=== PATIENT | male | born 1945 | race Caucasian/White ===

== ENCOUNTER → 2024-02-02 12:43 | Outpatient (REF) | payer OTHER, SELFPAY | LOC: CLAB 12:43 | PROVIDERS: ATTENDING PHYSICIAN Otolaryngology | DX: J35.8 Other chronic diseases of tonsils and adenoids (principal) | CPT/HCPCS: 88305; 88342 ==

== ENCOUNTER → 2024-03-01 11:23 | Outpatient (REF) | payer OTHER, SELFPAY | LOC: RCS 11:23 | PROVIDERS: ATTENDING PHYSICIAN Specialist; FAMILY PHYSICIAN Family Medicine | DX: Z01.818 Encounter for other preprocedural examination (principal) | CPT/HCPCS: 93005 ==

== ENCOUNTER → 2024-04-17 08:19 | Outpatient (REF) | payer OTHER, SELFPAY ==
[2024-04-17 08:50] VITALS: BP 141/55; BP_SYST 51
== END ==
LOC: RADI 08:19
PROVIDERS: ATTENDING PHYSICIAN Internal Medicine Hematology & Oncology; FAMILY PHYSICIAN Family Medicine
DX: C76.0 Malignant neoplasm of head, face and neck (principal); Z53.8 Procedure and treatment not carried out for other reasons; I44.1 Atrioventricular block, second degree; I49.8 Other specified cardiac arrhythmias
CPT/HCPCS: 93005

== ENCOUNTER 2024-04-17 09:13 | Emergency (ER) | payer OTHER, SELFPAY ==
[2024-04-17 09:17] VITALS: BP 132/63
[2024-04-17 09:25] VITALS: BP 145/66
[2024-04-17 09:30] VITALS: BMI 29.3
--- NOTE | 2024-04-17 09:52 | ED.GENMED ---
History of Present Illness
General
Chief Complaint: Cardiac Symptoms
Source: patient and physician
Time Seen by Provider: 04/17/24 09:36
History of Present Illness
History of Present Illness:
78-year-old male with past medical history of hypertension, hyperlipidemia, previous DC, previous CVA, diabetes, sent to the emergency department from interventional radiology after he was supposed to be getting a port placement for initiation of
treatment for oropharyngeal cancer where he was getting an EKG performed and was found to be in a suspected heart block. Patient is asymptomatic, denies chest pain, shortness of, palpitations, sensation of syncope or near syncope, lightheadedness,
dizziness, weakness or any other concerns. States that he feels as if he is in his usual state of health. He notes that he does not follow with a medical physiologist. His DC occurred in 2008 but he states he does not have any cardiac stents. He reports
good compliance with a daily 81 mg aspirin.
Past History
Past History
ED Past Medical History: Cancer, CVA, HTN, Hypercholesterolemia, NIDDM and DC
ED Past Surgical History: Orthopedic and Other
Social History
Tobacco: Former smoker
Alcohol: None
Drug: None
Personal: Single
Living: with family
Review of Systems
Review of Systems
All Other Systems: ROS reviewed and negative except as documented in HPI and ROS
Phy Exam
Physical Exam
Physical Exam:
GENERAL: Alert , in no apparent distress
EYE: conjunctiva clear
NECK: Supple.
ENT: o/p clr, mmm.
CARDIAC: R bradycardic rate and rhythm, frequent pauses and dropped QRS complexes on people manager
LUNGS: Clear breath sounds bilaterally, no acute respiratory distress, no wheezes/rales/rhonchi
NEUROLOGICAL: Alert and oriented
SKIN: Warm and dry, skin intact.
MUSCULOSKELETAL: well perfused.
PSYCH: Normal and appropriate interaction.
Scores
Heart Failure Risk
Heart Failure Risk Score: Not Applicable
Heart Score for Chest Pain Patients
STEMI patient?: Not applicable
Withdrawal Assessment of Alcohol
Withdrawal Assessment Completed?: Not applicable
Course
Orders/Labs/Results
Orders:
Orders
04/17/24 09:52
Basic Metabolic Panel Urgent
Complete Blood Count/With Diff Urgent
Magnesium Urgent
TSH Urgent
Abnormal Lab Results
04/17/24
09:52
MCH 31.5 H pg
(27.0-31.0)
Plt Count 116 L 10^3/uL
(130-400)
MPV 11.8 H fL
(7.4-10.4)
Monocytes % 9.4 H %
(1.7-9.3)
BUN 23 H mg/dl
(9-20)
04/17/24 09:52
04/17/24 09:52
Vital Signs
Initial and Last Documented VS:
Initial Vital Signs
Temp Pulse BP Pulse Ox
98.4 F 52 132/63 96
04/17/24 09:17 04/17/24 09:17 04/17/24 09:17 04/17/24 09:17
Last Documented Vital Signs
Temp Pulse Resp BP Pulse Ox
98.4 F 58 18 158/98 96
04/17/24 09:17 04/17/24 12:00 04/17/24 12:01 04/17/24 12:01 04/17/24 11:45
Geometry Professor consulted with Physician
Geometry Professor consulted with physician?: Yes
Name of Physician Consulted: Landon
MDM/Problems Addressed
Differential Diagnosis Includes:
High-grade heart block, electrolyte disturbance, no symptoms to suggest ACS
MDM/Problems Addressed:
78-year-old male presenting to the emergency department for evaluation from interventional radiology after he was incidentally found to have a suspected high degree heart block on EKG. Patient is asymptomatic presently and does not report any other
symptoms over the last few days/weeks. Unclear as to if this is a new diagnosis as patient has not followed with a medical physiologist in many years. Patient was placed on pacer pads and kept on people manager. Labs sent. I notified medical physiologist
on-call, Dr. Dwyer, who will come to the emergency department to evaluate patient.
Chronic conditions affecting care: CAD and Cancer
*Pulse Oximetry
Patient hypoxic: no
*EKG
Interpreted by ED Provider?: Yes
Heart Rate: 48
Rate: bradycardiac
Rhythm: sinus
Dickinson: normal axis
Interval: second degree mobitz II
Ischemia: no ischemia
*Tie Worker Interpretation
Rate: bradycardiac
Rhythm: sinus
*Critical Care Note
Total Time (30-74mins, 75-104mins- exclusive of procedures): Not Applicable
Patient Management
Discussion with other providers: Disposition Clerk
Escalation/DeEscalation of care consider admission/obs:
Patient seen by cardiology. They suspect patients heart block is a 2nd degree degree mobitz 1 and not a type 2 as we were originally concerned with. Cardiology is recommending cessation of beta-gilberto and they will arrange for a holter monitor and
outpatient follow up. Patient was counselled on return precautions to the ER and he is happy and in agreement with this treatment plan.
ED Attending Note
-
Portions of this chart may have been created with voice recognition software.� Occasional wrong word or��sound alike� substitutions may have occurred due to the inherent limitations of voice recognition software.
Discharge Plan
Departure
Patient Disposition: Home (Routine Discharge)
Date of Disposition: 04/17/24
Time of Disposition: 11:59
Patient with high blood pressure during this ER visit?: No
Discharge Problem:
Mobitz type I Wenckebach atrioventricular block
Instructions: Heart Block, Adult (DC)
Prescriptions:
No Action
gabapentin 300 mg Capsule
1,200 mg PO TID
benazepril 40 mg Tablet
40 mg PO DAILY
aspirin 81 mg Tablet,Delayed Release (Dr/Ec)
81 mg PO .ON HOLD
Patient Comments:
04/17/2024, on hold per pt. for his upcoming procedure that he has scheduled for tomorrow. Was taking 1 tab daily before placed on hold.
acetaminophen [Tylenol Extra Strength] 500 mg Tablet
1,500 mg PO BIDPRN PRN (Reason: mild pain)
potassium 99 mg Tablet
198 mg PO HS
omeprazole 20 mg capsule,delayed release(DR/EC)
20 mg PO DAILY
rosuvastatin 5 mg tablet
5 mg PO HS
Patient Comments:
04/17/2024, pt. gets this med. through [employer]. Per pt., he gets 3 month supplies of this med. every 6 weeks.
insulin glargine [Lantus Solostar U-100 Insulin] 100 unit/mL (3 mL) Insulin Pen
7 unit SC HS
insulin aspart U-100 [Novolog U-100 Insulin aspart] 100 unit/mL Solution
16 unit SC TID
Referrals:
Veronica Dwyer MD [Active] -
Pepito Manrique MD [Family Provider] -
Activity Restrictions/Additional Instructions:
Please stop taking your metoprolol as recommended by the medical physiologist. Return to the ER with any worsening symptoms or concerns
Interventions
Interventions:
*Risk Screen - Suicide Last Done: 04/17/24 09:40
*General Assessment Last Done: 04/17/24 09:40
*Neglect/Abuse Screening Last Done: 04/17/24 09:40
*ED COVID-19 Vaccine History Last Done: 04/17/24 09:21
*Nursing Disposition Last Done: 04/17/24 12:23
ED- Pulmonary Assessment Last Done: 04/17/24 09:31
ED- Cardiac Assessment Last Done: 04/17/24 09:31
Discharge Date and Time
Discharge Date/Time: 04/17/24 12:24
Print Language: TAJIK
[2024-04-17 10:00] LABS: % Basophils 1.2 % (0-2); % Immature Granulocytes 0.2 % (0-0.5); % Lymphocytes 38.1 % (20.5-51.1); % Monocytes 9.4 % (1.7-9.3); % Neutrophils 45.1 % (42.2-75.2); Absolute Basophils 0.1 10^3/uL (0-0.2); Absolute Eosinophils 0.4 10^3/uL (0-0.7); Absolute Lymphocytes 2.2 10^3/uL (1.2-3.4); Absolute Monocytes 0.6 10^3/uL (0.1-0.6); Absolute Neutrophils 2.7 10^3/uL (1.4-6.5); Hematocrit 44.6 % (39.0-52.0); Hemoglobin 15.1 g/dL (13.0-18.0); Mean Corp Hgb Conc. 33.9 g/dL (33.0-37.0); Mean Corpuscular Hgb 31.5 pg (27.0-31.0); Mean Corpuscular Volume 92.9 fL (80.0-94.0); Mean Platelet Volume 11.8 fL (7.4-10.4); Nucleated Red Blood Cells % 0 % (-); Platelet Count 116 10^3/uL (130-400); Red Cell Dist. Width 13.5 % (11.5-14.5); White Blood Cell Count 5.9 10^3/uL (4.8-10.8)
[2024-04-17 10:11] LABS: Blood Urea Nitrogen 23 mg/dl (9-20); Calcium 9.9 mg/dl (8.4-10.2); Carbon Dioxide 29 mmol/L (22-30); Chloride 101 mmol/L (98-107); Estimated Creatinine Clearance 82 ml/min; Glucose 88 mg/dl (70-99); Sodium 138 mmol/L (135-145); eGFR > 60.00
[2024-04-17 10:20] VITALS: BP 129/81
[2024-04-17 10:47] LABS: TSH 1.89 uIU/ml (0.47-4.68)
--- NOTE | 2024-04-17 10:51 | CON.CAR ---
Addendum entered and electronically signed by Veronica Dwyer MD 04/17/24 12:26:
I saw and examined the patient.
The CONTINUOUS MINING MACHINE LODE MINER's note was reviewed and I agree with the note.
Comment: 78 yo male with HTN, HLD, IDDM (managed by Dr. Yeung), history of PR in 1978 (medical management), PAD (s/p left carotid stent), spinal stenosis and oropharyngeal cancer (right tonsil, managed by Dr. Velasquez), who presents to the ER from IR
after an EKG showed sinus bradycardia 48 bpm with marked sinus arrhythmia with first degree AVB with second degree AVB Mobitz I. He was in IR for a port placement for initiation of chemotherapy for oropharyngeal cancer. He is feeling well without
complaint. rrr, no m/r/g, lungs cta, a&O x3. ECG with sb and wenckebach. Will stop his bb. He will monitor bp at home, may need a nonav tamra blocking agent. Will arrange holter and f/u. No CI for port placement.
Original Note:
Consultation
Consultation Request
Date/Time Consultation Requested: 04/17/24 10a
Date/Time Consultation Performed: 04/17/24 10:30a
Requesting Provider: Jeremias Duong PA-C
Performing Provider: DEON Shultz for Dr. Dwyer
Reason for Consultation: second degree AVB Mobitz I
Medical History
-
Chief Complaint: second degree AVB on EKG
History of Present Illness:
Mr. George is a 78 yo male with HTN, HLD, IDDM (managed by Dr. Yeung), history of PR in 1978 (medical management), PAD (s/p left carotid stent), spinal stenosis and oropharyngeal cancer (right tonsil, managed by Dr. Velasquez), who presents to the
ER from IR after an EKG showed sinus bradycardia 48 bpm with marked sinus arrhythmia with first degree AVB with second degree AVB Mobitz I. He was in IR for a port placement for initiation of chemotherapy for oropharyngeal cancer. He denies any
cardiac symptoms and feels 'great, normal'. He is on Lopressor 50mg BID and took his meds this morning. We are consulted for second degree AVB Pj Moreno.
Past Medical History
Past Medical History: Other (as above)
Past Surgical History: Orthopedic (back surgery for spinal stenosis) and Other (left carotid artery stent)
Social History
Tobacco: Former Smoker (quit in 1978)
Alcohol: Daily (2 beers with dinner)
Drug: None
Personal:
Living: With Family (sister)
Employment: Retired
Family History
Family History: Early CAD (father had CABG in early 60s, of PR age 69. mother had PR/CVA age 85)
Allergies / Home Medications
Allergy/AdvReac Type Severity Reaction Status Date / Time
bee venom protein (honey bee) Allergy Unknown Verified 04/17/24 09:22
empagliflozin Allergy Unknown Verified 04/17/24 09:22
�Medication �Instructions �Recorded �Confirmed �Type
benazepril 40 mg tablet 40 mg PO DAILY 02/09/24 04/17/24 History
gabapentin 300 mg capsule 1,200 mg PO TID 02/09/24 04/17/24 History
metoprolol tartrate 50 mg tablet 50 mg PO BID 02/09/24 04/17/24 History
acetaminophen 500 mg tablet 1,500 mg PO BIDPRN PRN mild pain 04/17/24 04/17/24 History
(Tylenol Extra Strength)
aspirin 81 mg tablet,delayed 81 mg PO .ON HOLD 04/17/24 04/17/24 History
release
insulin glargine 100 unit/mL (3 7 unit SC HS 04/17/24 04/17/24 History
mL) subcutaneous pen (Lantus
Solostar U-100 Insulin)
omeprazole 20 mg capsule,delayed 20 mg PO DAILY 04/17/24 04/17/24 History
release
potassium 99 mg tablet 198 mg PO HS 04/17/24 04/17/24 History
rosuvastatin 5 mg tablet 5 mg PO HS 04/17/24 04/17/24 History
Review of Systems
-
History Source: Patient
All other systems: Negative unless noted
Physical Exam
Vital Signs
Temp Pulse Resp BP Pulse Ox
98.4 F 55 12 129/81 96
04/17/24 09:17 04/17/24 10:20 04/17/24 10:20 04/17/24 10:20 04/17/24 10:20
Lab Results
04/17/24 09:52
04/17/24 09:52
Physical Exam
General: Well Developed, Well Nourished and No Apparent Distress
HEENT: Normocephalic, Anicteric and Moist Mucous Membranes
Respiratory: Clear and Non Labored Respirations
Cardiac: S1/S2 and Regular Rhythm (kendy with second degree AVB Mobitz I at times)
Breast: Deferred by me
GI: Soft, Non Tender, Non Distended and Normal Bowel Sounds
Rectal: Deferred by Provider
Genito-urinary: Clear Urine
Musculoskeletal: No Clubbing, No Cyanosis and No Edema
Skin: Warm and Dry
Neuro: AO x 3
Psych: Calm
Impression / Plan
-
Second degree AVB, Mobitz I - new on EKG today.
- intermittent.
- asymptomatic.
- stop Lopressor 50mg BID.
- check 48 hour Holter monitor, follow up cardiology as outpatient.
Sinus bradycardia - asymptomatic.
- as above.
HTN - stable.
- continue home meds, benazepril.
- monitor BP since Lopressor stopped, follow up PCP and cardiology.
HLD - stable on Crestor, continue.
History of PR - 1978, medical therapy.
- does not follow with cardiology.
- ASA, Crestor, Lopressor (hold as above).
PAD - s/p left carotid stent about 5 years ago.
- ASA, Crestor.
IDDM - insulin per Dr. Yeung as an outpatient.
Data Reviewed
-
EKG: Tracing Personally Visualized and interpreted (sinus bradycardia 48 bpm with marked sinus arrhythmia with first degree AVB with second degree AVB Mobitz I)
Labs: Labs Reviewed by me
Old Records: Reviewed
[2024-04-17 11:00] VITALS: BP 105/69
[2024-04-17 12:01] VITALS: BP 158/98
== END 2024-04-17 12:24 | disposition home or self-care (01) ==
LOC: EMR 09:13
PROVIDERS: Physician Assistant Medical; EMERGENCY PHYSICIAN Emergency Medicine; FAMILY PHYSICIAN Family Medicine
DX: I44.1 Atrioventricular block, second degree (principal); I10 Essential (primary) hypertension; E78.00 Pure hypercholesterolemia, unspecified; I25.2 Old myocardial infarction; E11.9 Type 2 diabetes mellitus without complications; C10.9 Malignant neoplasm of oropharynx, unspecified; Z82.3 Family history of stroke; Z82.49 Family history of ischemic heart disease and other diseases of the circulatory system; Z87.891 Personal history of nicotine dependence
CPT/HCPCS: 99283; 80048; 83735; 84443; 85025

== ENCOUNTER → 2024-04-21 08:29 | Outpatient (REF) | payer OTHER, SELFPAY ==
[2024-04-21 08:45] VITALS: BP 135/88; BP_SYST 63
[2024-04-21] MEDS: ANCEF 10 IV (10:10)
[2024-04-21 11:05] VITALS: BP 138/68; BP_SYST 67
[2024-04-21 11:30] VITALS: BP 138/68
== END ==
LOC: RADI 08:29
PROVIDERS: ATTENDING PHYSICIAN Internal Medicine Hematology & Oncology; FAMILY PHYSICIAN Family Medicine
DX: C76.0 Malignant neoplasm of head, face and neck (principal)
CPT/HCPCS: 36561; 76937; 77001; 99152; 99153; C1788

== ENCOUNTER → 2024-04-22 10:21 | Outpatient (REF) | payer OTHER, SELFPAY | LOC: RCS 10:21 | PROVIDERS: ATTENDING PHYSICIAN Internal Medicine Cardiovascular Disease; FAMILY PHYSICIAN Family Medicine | DX: I44.0 Atrioventricular block, first degree (principal) | CPT/HCPCS: 93225; 93226 ==

== ENCOUNTER → 2024-05-31 09:11 | Outpatient (REF) | payer OTHER, SELFPAY ==
[2024-05-31 11:23] LABS: Hematocrit 37.1 % (39.0-52.0); Hemoglobin 13.1 g/dL (13.0-18.0); Mean Corp Hgb Conc. 35.3 g/dL (33.0-37.0); Mean Corpuscular Hgb 32.8 pg (27.0-31.0); Mean Corpuscular Volume 92.8 fL (80.0-94.0); Red Cell Dist. Width 13.2 % (11.5-14.5)
[2024-05-31 11:49] LABS: ALT (SGPT) 26 U/L (0-50); AST (SGOT) 28 U/L (17-59); Albumin 3.9 g/dl (3.5-5.0); Alkaline Phosphatase 55 U/L (38-126); Blood Urea Nitrogen 30 mg/dl (9-20); Calcium 9.3 mg/dl (8.4-10.2); Carbon Dioxide 30 mmol/L (22-30); Chloride 98 mmol/L (98-107); Glucose 128 mg/dl (70-99); Magnesium 1.2 mg/dl (1.6-2.3); Sodium 133 mmol/L (135-145); Total Bilirubin 0.6 mg/dl (0.2-1.3); Total Protein 6.1 g/dl (6.3-8.2); eGFR > 60.00
[2024-05-31 12:01] LABS: Mean Platelet Volume 10.8 fL (7.4-10.4); Platelet Count 60 10^3/uL (130-400)
[2024-05-31 12:04] LABS: % Basophils 0.5 % (0-2); % Eosinophils 0.5 % (0-6); % Lymphocytes 41.4 % (20.5-51.1); % Monocytes 12.3 % (1.7-9.3); % Neutrophils 45.3 % (42.2-75.2); Absolute Lymphocytes 0.8 10^3/uL (1.2-3.4); Absolute Monocytes 0.3 10^3/uL (0.1-0.6); Absolute Neutrophils 0.9 10^3/uL (1.4-6.5); Nucleated Red Blood Cells % 0 % (-)
== END ==
LOC: REG 09:11
PROVIDERS: ATTENDING PHYSICIAN Internal Medicine Hematology & Oncology; FAMILY PHYSICIAN Family Medicine
DX: C76.0 Malignant neoplasm of head, face and neck (principal)
CPT/HCPCS: 36415; 80053; 83735; 85025

== ENCOUNTER → 2024-06-06 15:05 | Outpatient (REF) | payer OTHER, SELFPAY ==
[2024-06-06 17:18] LABS: ALT (SGPT) 19 U/L (0-50); AST (SGOT) 21 U/L (17-59); Albumin 4.1 g/dl (3.5-5.0); Alkaline Phosphatase 63 U/L (38-126); Blood Urea Nitrogen 30 mg/dl (9-20); Calcium 9.8 mg/dl (8.4-10.2); Carbon Dioxide 27 mmol/L (22-30); Chloride 98 mmol/L (98-107); Glucose 135 mg/dl (70-99); Magnesium 1.5 mg/dl (1.6-2.3); Potassium 5.1 mmol/L (3.5-5.1); Sodium 134 mmol/L (135-145); Total Bilirubin 0.4 mg/dl (0.2-1.3); Total Protein 6.5 g/dl (6.3-8.2); eGFR > 60.00
[2024-06-06 17:30] LABS: % Eosinophils 0.5 % (0-6); % Immature Granulocytes 0.5 % (0-0.5); % Lymphocytes 39.3 % (20.5-51.1); % Monocytes 16.4 % (1.7-9.3); % Neutrophils 43.3 % (42.2-75.2); Absolute Lymphocytes 0.7 10^3/uL (1.2-3.4); Absolute Monocytes 0.3 10^3/uL (0.1-0.6); Absolute Neutrophils 0.8 10^3/uL (1.4-6.5); Hematocrit 35.9 % (39.0-52.0); Hemoglobin 12.6 g/dL (13.0-18.0); Mean Corp Hgb Conc. 35.1 g/dL (33.0-37.0); Mean Corpuscular Hgb 32.5 pg (27.0-31.0); Mean Corpuscular Volume 92.5 fL (80.0-94.0); Mean Platelet Volume 10.6 fL (7.4-10.4); Nucleated Red Blood Cells % 0 % (-); Platelet Count 90 10^3/uL (130-400); Red Blood Cell Count 3.88 10^6/uL (4.70-6.10); Red Cell Dist. Width 13.5 % (11.5-14.5); White Blood Cell Count 1.8 10^3/uL (4.8-10.8)
== END ==
LOC: REG 15:05
PROVIDERS: ATTENDING PHYSICIAN Internal Medicine Hematology & Oncology; FAMILY PHYSICIAN Family Medicine
DX: C76.0 Malignant neoplasm of head, face and neck (principal)
CPT/HCPCS: 36415; 80053; 83735; 85025

== ENCOUNTER → 2024-06-13 15:44 | Outpatient (REF) | payer OTHER, SELFPAY ==
[2024-06-13 09:27] LABS: % Basophils 0.1 % (0-2); % Eosinophils 0.1 % (0-6); % Immature Granulocytes 6.5 % (0-0.5); % Lymphocytes 6.8 % (20.5-51.1); % Monocytes 11.2 % (1.7-9.3); % Neutrophils 75.3 % (42.2-75.2); Absolute Immature Granulocytes 1.3 10^3/uL (0-0.05); Absolute Lymphocytes 1.4 10^3/uL (1.2-3.4); Absolute Monocytes 2.2 10^3/uL (0.1-0.6); Absolute Neutrophils 14.9 10^3/uL (1.4-6.5); Hematocrit 36.6 % (39.0-52.0); Hemoglobin 12.5 g/dL (13.0-18.0); Mean Corp Hgb Conc. 34.2 g/dL (33.0-37.0); Mean Corpuscular Hgb 31.9 pg (27.0-31.0); Mean Corpuscular Volume 93.4 fL (80.0-94.0); Mean Platelet Volume 9.7 fL (7.4-10.4); Platelet Count 199 10^3/uL (130-400); Red Blood Cell Count 3.92 10^6/uL (4.70-6.10); Red Cell Dist. Width 14.3 % (11.5-14.5); White Blood Cell Count 19.8 10^3/uL (4.8-10.8)
[2024-06-13 09:53] LABS: ALT (SGPT) 15 U/L (0-50); AST (SGOT) 23 U/L (17-59); Albumin 4.2 g/dl (3.5-5.0); Alkaline Phosphatase 92 U/L (38-126); Blood Urea Nitrogen 27 mg/dl (9-20); Calcium 10.1 mg/dl (8.4-10.2); Carbon Dioxide 29 mmol/L (22-30); Chloride 97 mmol/L (98-107); Glucose 209 mg/dl (70-99); Magnesium 1.6 mg/dl (1.6-2.3); Potassium 4.2 mmol/L (3.5-5.1); Sodium 137 mmol/L (135-145); Total Bilirubin 0.4 mg/dl (0.2-1.3); Total Protein 6.4 g/dl (6.3-8.2); eGFR > 60.00
== END ==
LOC: OIDL 15:44
PROVIDERS: ATTENDING PHYSICIAN Internal Medicine Hematology & Oncology
DX: C76.0 Malignant neoplasm of head, face and neck (principal)
CPT/HCPCS: 80053; 83735; 85025

== ENCOUNTER → 2024-06-27 16:26 | Outpatient (REF) | payer OTHER, SELFPAY ==
[2024-06-27 14:52] LABS: % Basophils 0.5 % (0-2); % Eosinophils 0.2 % (0-6); % Immature Granulocytes 0.3 % (0-0.5); % Lymphocytes 12.6 % (20.5-51.1); % Monocytes 15.2 % (1.7-9.3); % Neutrophils 71.2 % (42.2-75.2); Absolute Lymphocytes 0.8 10^3/uL (1.2-3.4); Absolute Neutrophils 4.7 10^3/uL (1.4-6.5); Hematocrit 33.3 % (39.0-52.0); Hemoglobin 11.8 g/dL (13.0-18.0); Mean Corp Hgb Conc. 35.4 g/dL (33.0-37.0); Mean Corpuscular Hgb 32.6 pg (27.0-31.0); Mean Platelet Volume 10.5 fL (7.4-10.4); Platelet Count 149 10^3/uL (130-400); Red Blood Cell Count 3.62 10^6/uL (4.70-6.10); Red Cell Dist. Width 15.6 % (11.5-14.5); White Blood Cell Count 6.6 10^3/uL (4.8-10.8)
[2024-06-27 16:01] LABS: ALT (SGPT) 20 U/L (0-50); AST (SGOT) 21 U/L (17-59); Alkaline Phosphatase 82 U/L (38-126); Blood Urea Nitrogen 32 mg/dl (9-20); Calcium 9.6 mg/dl (8.4-10.2); Carbon Dioxide 25 mmol/L (22-30); Chloride 96 mmol/L (98-107); Glucose 268 mg/dl (70-99); Magnesium 1.4 mg/dl (1.6-2.3); Potassium 4.4 mmol/L (3.5-5.1); Sodium 132 mmol/L (135-145); Total Bilirubin 0.6 mg/dl (0.2-1.3); Total Protein 6.3 g/dl (6.3-8.2); eGFR > 60.00
== END ==
LOC: OIDL 16:26
PROVIDERS: ATTENDING PHYSICIAN Nurse Practitioner Adult Health
DX: C76.0 Malignant neoplasm of head, face and neck (principal)
CPT/HCPCS: 80053; 83735; 85025

== ENCOUNTER → 2024-07-03 10:13 | Outpatient (REF) | payer OTHER, SELFPAY ==
[2024-07-03 11:20] LABS: % Basophils 0.6 % (0-2); % Eosinophils 0.6 % (0-6); % Immature Granulocytes 0.6 % (0-0.5); % Lymphocytes 16.9 % (20.5-51.1); % Monocytes 14.6 % (1.7-9.3); % Neutrophils 66.7 % (42.2-75.2); Absolute Lymphocytes 0.8 10^3/uL (1.2-3.4); Absolute Monocytes 0.7 10^3/uL (0.1-0.6); Absolute Neutrophils 3.2 10^3/uL (1.4-6.5); Hematocrit 36.4 % (39.0-52.0); Hemoglobin 12.9 g/dL (13.0-18.0); Mean Corp Hgb Conc. 35.4 g/dL (33.0-37.0); Mean Corpuscular Hgb 33.2 pg (27.0-31.0); Mean Corpuscular Volume 93.6 fL (80.0-94.0); Mean Platelet Volume 10.6 fL (7.4-10.4); Nucleated Red Blood Cells % 0 % (-); Platelet Count 147 10^3/uL (130-400); Red Blood Cell Count 3.89 10^6/uL (4.70-6.10); Red Cell Dist. Width 16.6 % (11.5-14.5); White Blood Cell Count 4.9 10^3/uL (4.8-10.8)
[2024-07-03 12:02] LABS: ALT (SGPT) 21 U/L (0-50); AST (SGOT) 26 U/L (17-59); Albumin 4.2 g/dl (3.5-5.0); Alkaline Phosphatase 74 U/L (38-126); Blood Urea Nitrogen 26 mg/dl (9-20); Calcium 10.2 mg/dl (8.4-10.2); Carbon Dioxide 27 mmol/L (22-30); Chloride 93 mmol/L (98-107); Glucose 198 mg/dl (70-99); Magnesium 1.6 mg/dl (1.6-2.3); Potassium 4.2 mmol/L (3.5-5.1); Sodium 135 mmol/L (135-145); Total Bilirubin 0.8 mg/dl (0.2-1.3); Total Protein 6.6 g/dl (6.3-8.2); eGFR > 60.00
== END ==
LOC: REG 10:13
PROVIDERS: ATTENDING PHYSICIAN Internal Medicine Hematology & Oncology
DX: C76.0 Malignant neoplasm of head, face and neck (principal)
CPT/HCPCS: 36415; 80053; 83735; 85025

== ENCOUNTER → 2024-07-18 16:07 | Outpatient (REF) | payer OTHER, SELFPAY ==
[2024-07-18 10:32] LABS: % Basophils 0.2 % (0-2); % Eosinophils 0.7 % (0-6); % Immature Granulocytes 0.2 % (0-0.5); % Lymphocytes 18.9 % (20.5-51.1); % Monocytes 11.9 % (1.7-9.3); % Neutrophils 68.1 % (42.2-75.2); Absolute Lymphocytes 0.8 10^3/uL (1.2-3.4); Absolute Monocytes 0.5 10^3/uL (0.1-0.6); Absolute Neutrophils 2.8 10^3/uL (1.4-6.5); Hematocrit 37.6 % (39.0-52.0); Hemoglobin 12.8 g/dL (13.0-18.0); Mean Corpuscular Hgb 33.7 pg (27.0-31.0); Mean Corpuscular Volume 98.9 fL (80.0-94.0); Mean Platelet Volume 9.9 fL (7.4-10.4); Platelet Count 114 10^3/uL (130-400); Red Cell Dist. Width 16.4 % (11.5-14.5); White Blood Cell Count 4.1 10^3/uL (4.8-10.8)
[2024-07-18 12:29] LABS: ALT (SGPT) 18 U/L (0-50); AST (SGOT) 21 U/L (17-59); Alkaline Phosphatase 70 U/L (38-126); Blood Urea Nitrogen 22 mg/dl (9-20); Calcium 9.7 mg/dl (8.4-10.2); Carbon Dioxide 26 mmol/L (22-30); Chloride 97 mmol/L (98-107); Glucose 199 mg/dl (70-99); Magnesium 1.6 mg/dl (1.6-2.3); Potassium 4.3 mmol/L (3.5-5.1); Sodium 136 mmol/L (135-145); Total Bilirubin 0.6 mg/dl (0.2-1.3); Total Protein 6.6 g/dl (6.3-8.2); eGFR > 60.00
== END ==
LOC: OIDL 16:07
PROVIDERS: ATTENDING PHYSICIAN Nurse Practitioner Adult Health
DX: C76.0 Malignant neoplasm of head, face and neck (principal)
CPT/HCPCS: 80053; 83735; 85025

== ENCOUNTER → 2024-10-19 15:21 | Outpatient (REF) | payer OTHER, SELFPAY | LOC: CLAB 15:21 | PROVIDERS: ATTENDING PHYSICIAN Otolaryngology | DX: C09.9 Malignant neoplasm of tonsil, unspecified (principal) | CPT/HCPCS: 88173 ==

== ENCOUNTER → 2025-03-21 09:06 | Outpatient (REF) | payer OTHER, SELFPAY | LOC: RCS 09:06 | PROVIDERS: ATTENDING PHYSICIAN Internal Medicine Cardiovascular Disease; FAMILY PHYSICIAN Physician Assistant | DX: I44.1 Atrioventricular block, second degree (principal); I44.0 Atrioventricular block, first degree | CPT/HCPCS: 93306 ==

== ENCOUNTER → 2025-08-22 12:14 | Outpatient (REF) | payer OTHER, SELFPAY ==
[2025-08-22 12:42] VITALS: BP 141/62; BP_SYST 60
[2025-08-22 13:30] VITALS: BP 131/45
== END ==
LOC: RADI 12:14
PROVIDERS: ATTENDING PHYSICIAN Internal Medicine Hematology & Oncology; FAMILY PHYSICIAN Physician Assistant; REFERRING PHYSICIAN Radiology Radiation Oncology
DX: Z45.2 Encounter for adjustment and management of vascular access device (principal); C76.0 Malignant neoplasm of head, face and neck
CPT/HCPCS: 36590; 77001